=== PATIENT | male | born 1975 ===

== ENCOUNTER 2022-12-05 08:16 | Outpatient (CLI) | payer OTHER, SELFPAY | END 2022-12-05 08:17 | disposition home or self-care (01) | LOC: NFLDREF 12-07 07:08 | PROVIDERS: PCP Family Medicine; Referring Provider Family Medicine; Visit Provider Family Medicine | DX: Z00.00 Encounter for general adult medical examination without abnormal findings (principal); I10 Essential (primary) hypertension; Z13.6 Encounter for screening for cardiovascular disorders | CPT/HCPCS: 80048; 80061 ==